=== PATIENT | female | born 2000 | race Caucasian/White ===

== ENCOUNTER 2025-08-07 19:12 | Emergency (ER) | payer OTHER, SELFPAY ==
[2025-08-07 19:29] VITALS: BP 133/83
[2025-08-07 19:55] LABS: Hematocrit 43.5 % (37.0-47.0); Hemoglobin 15.0 g/dL (12.0-16.0); Mean Corp Hgb Conc. 34.5 g/dL (33.0-37.0); Mean Corpuscular Volume 89.0 fL (81.0-99.0); Nucleated Red Blood Cells % 0 %; Platelet Count 397 10^3/uL (130-400); Red Cell Dist. Width 11.0 % (11.5-14.5)
[2025-08-07 20:11] LABS: HCG, Serum Qualitative Screen Negative
[2025-08-07 20:19] LABS: ALT (SGPT) 35 U/L (0-35); AST (SGOT) 23 U/L (14-36); Albumin 5.0 g/dl (3.5-5.0); Alkaline Phosphatase 29 U/L (38-126); Blood Urea Nitrogen 8 mg/dl (7-17); Calcium 9.9 mg/dl (8.4-10.2); Carbon Dioxide 25 mmol/L (22-30); Chloride 104 mmol/L (98-107); Glucose 152 mg/dl (70-99); Potassium 4.1 mmol/L (3.5-5.1); Sodium 139 mmol/L (135-145); Total Protein 8.1 g/dl (6.3-8.2); eGFR > 60.00
--- NOTE | 2025-08-07 21:44 | ED.GENMED ---
History of Present Illness
General
Chief Complaint: Headache
Source: patient
Exam Limitations: none
Time Seen by Provider: 08/07/25 21:31
Nursing documentation reviewed up to this point in time: agreed with
History of Present Illness
History of Present Illness:
Patient to the emergency room with complaint of migraine headache for 3 weeks. She has a history of migraine headaches. She states earlier this year her headaches became worse and were no longer controlled with her migraine medications. She was
admitted to [facility] for approximately 6 days in November for migraine workup. Work-up included MRI/MRA which she reports was normal. She was treated with IV fluids and steroids. Migraines never resolved but did improve some she was
eventually discharged home. Since that time her neurologist Dr. AYALA has had her on multiple medications including triptans Qulipta NSAIDs Fioricet, all without relief of pain. She is currently not taking any prescription medication. She reports
this latest migraine started 3 weeks ago was tolerable until approximately 2 days ago and pain began to worsen. She was placed on prednisone by her neurologist 2 days ago. Patient does not notice any improvement. Her neurologist advised her to
come to the emergency department for evaluation. She denies any fever chills neck pain skin rash. No nausea or vomit.
Past History
Past History
ED Past Medical History: Other (migraines, miguel's thyroiditis)
Review of Systems
Review of Systems
Allergies reviewed?: Yes
All Other Systems: ROS reviewed and negative except as documented in HPI and ROS
Constitutional: Reports no symptoms
EENT: Reports no symptoms
Respiratory: Reports no symptoms
Cardiac: Reports no symptoms
ABD/GI: Reports no symptoms
: Reports no symptoms
Musculoskeletal: Reports no symptoms
Neurological: Reports headache (migraine)
Psychiatric: Reports no symptoms
Phy Exam
General Physical Exam
General Presentation: well appearing and mild distress
General age: appears stated age
General Skin: warm and dry
General Habitus: normal
General Mental: alert
ENT Exam
ENT Exam: EOMI, neck supple, normocephalic and swallowing well
Eye Exam
Eye Exam: PERRL, EOMI, conjunctiva normal and globe normal
Cardiovascular Exam
Cardiovascular Exam: regular rate/rhythm and no edema
Neurological Exam
Neurological Exam: alert, oriented x3, CN II-XII intact, speech normal and normal gait
Musculoskeletal Exam
Musculoskeletal Exam: full ROM
Skin Exam
Skin Exam: normal color and warm/dry
Psychiatric Exam
Psychiatric Exam: normal mood/affect
Course
Orders/Labs/Results
Orders:
Orders
08/07/25 19:33
Test Result ONCE
08/07/25 19:44
C-Reactive Protein Urgent
Comment: ADD ON
Complete Blood Count/With Diff Urgent
Comprehensive Metabolic Panel Urgent
Erythrocyte Sed Rate Urgent
Comment: ADD ON
Free T4 Urgent
HCG, Serum Qualitative Screen Urgent
TSH Reflex To Free T4 Urgent
Comment: ADD ON
08/07/25 21:42
Add On- LAB Urgent
Tests Added?: sed rate, CRP, TSH reflex free T4
CT Head W/o Iv Contrast Urgent
Comment:
Reason For Exam: atypical migraine
08/07/25 22:10
0.9% Sodium Chloride 1000 ml [Nss] 1,000 ml IV BOLUS
Diphenhydramine [Benadryl] 50 mg IV NOW STA
Ketorolac [Toradol] 30 mg IV NOW STA
Prochlorperazine [Compazine] 10 mg IV NOW STA
Abnormal Lab Results
08/07/25
19:44
WBC 11.9 H 10^3/uL
(4.8-10.8)
RDW 11.0 L %
(11.5-14.5)
Absolute Neuts (auto) 10.3 H 10^3/uL
(1.4-6.5)
Neutrophils % 86.5 H %
(42.2-75.2)
Lymphocytes % 10.5 L %
(20.5-51.1)
Glucose 152 H mg/dl
(70-99)
Alkaline Phosphatase 29 L U/L
(38-126)
TSH (Reflex) 0.30 L uIU/ml
(0.47-4.68)
08/07/25 19:44
08/07/25 19:44
Vital Signs
Initial and Last Documented VS:
Initial Vital Signs
Pulse Resp BP Pulse Ox
86 18 133/83 99
08/07/25 19:29 08/07/25 19:29 08/07/25 19:29 08/07/25 19:29
Last Documented Vital Signs
Pulse Resp BP Pulse Ox
76 18 110/67 99
08/07/25 22:25 08/07/25 22:25 08/07/25 22:00 08/07/25 22:00
*Radiology
Radiology exam reviewed: radiology read reviewed
*Pulse Oximetry
SaO2: 99
Oxygen Mode of Delivery: Room air
Patient hypoxic: no
*Critical Care Note
Total Time (30-74mins, 75-104mins- exclusive of procedures): Not Applicable
Update Note
Update Note:
Patient to the emergency department with migraine head pain for the past 3 weeks. She has not responded to migraine medications in the past. She had a comprehensive neurologic evaluation at [facility] in November this included an MRI/MRA of
her brain. She reports there were no findings to explain her symptoms. She was placed on prednisone yesterday by her current neurologist. She comes to the ED today because pain has not lessened. Vital signs stable while in ED, she remains
afebrile. Neuroexam was unremarkable. Labs reviewed. WBC of 11.9. No prior labs to compare. She does remain afebrile there is no skin rash, there is no neck pain, no photophobia, no meningeal signs or symptoms. She has a history of Miguel's
thyroiditis her TSH tonight was 0.30 with a normal free T4 of 0.81. No intervention required tonight. I updated her on these findings. She is unsure what her last level was. Copy of her labs were sent home with her. She will follow-up with her
family doctor. CT of head completed. There were no acute findings noted. She was given IV fluids and a migraine cocktail of Toradol Benadryl and Compazine while in the ED. She reports improvement in pain level. She states that she is not
pain-free however current level is tolerable. She will be discharged home tonight and she agrees to follow-up with her neurologist in the a.m. She was given instructions on signs and symptoms to return to the emergency department and she is
agreeable to this plan
ED Attending Note
-
Portions of this chart may have been created with voice recognition software.� Occasional wrong word or��sound alike� substitutions may have occurred due to the inherent limitations of voice recognition software.
Discharge Plan
Departure
Patient Disposition: Home (Routine Discharge)
Date of Disposition: 08/07/25
Time of Disposition: 23:43
Patient with high blood pressure during this ER visit?: No
Condition: Good
Covid-19: Not Applicable
Discharge Problem:
Migraine headache
Instructions: Migraines (DC)
Referrals:
Yuli Beauchamp PA [Family Provider]
John Ayala MD [Active, Neurology] - Tomorrow
Activity Restrictions/Additional Instructions:
Follow-up with your neurologist in the a.m. Continue prednisone as prescribed by your neurologist. Return to the emergency department for any changes and worsening of your symptoms.
Interventions
Interventions:
*Risk Screen - Suicide Last Done: 08/07/25 19:29
*General Assessment Last Done: 08/07/25 19:29
*Neglect/Abuse Screening Last Done: 08/07/25 21:33
*ED- Fall Risk Assessment Last Done: 08/07/25 19:29
*ED COVID-19 Vaccine History Last Done: 08/07/25 19:29
*ED Influenza Vaccine History Last Done: 08/07/25 19:29
*Nursing Disposition Last Done: 08/07/25 23:50
ED- Neurological Assessment Last Done: 08/07/25 21:56
Discharge Date and Time
Discharge Date/Time: 08/07/25 23:53
Print Language: TUNISIAN
[2025-08-07 21:53] VITALS: BP 112/69
[2025-08-07 22:00] VITALS: BP 110/67
[2025-08-07] MEDS: NSS 1000 IV (22:24)
[2025-08-07] MEDS: TORADOL 30 MG IV (22:29)
[2025-08-07] MEDS: COMPAZINE 10 MG IV (22:29)
[2025-08-07] MEDS: BENADRYL 50 MG IV (22:29)
[2025-08-07 23:31] LABS: C-Reactive Protein < 5.00 mg/L (0.0-10.00)
== END 2025-08-07 23:53 | disposition home or self-care (01) ==
LOC: EMR 19:12
PROVIDERS: Emergency Medicine; EMERGENCY PHYSICIAN Emergency Medicine; FAMILY PHYSICIAN Nurse Practitioner Adult Health
DX: G43.009 Migraine without aura, not intractable, without status migrainosus (principal); E06.3 Autoimmune thyroiditis
CPT/HCPCS: 96374; 96375; 96361; 99284; 70450; 80053; 84439; 84443; 84703; 85025; 85652; 86140